=== PATIENT | female | born 1950 | race Caucasian/White ===

== ENCOUNTER 2017-08-20 16:51 | Emergency (ER) | payer MEDICARE, OTHER ==
[2017-08-20] MEDS ORDERED: LIDOCAINE HCL 1% MPF SOL ONE (16:59)
[2017-08-20 17:09] VITALS: RESP 20; TEMP 97.7
[2017-08-20] MEDS ORDERED: CEFTRIAXONE 1 GM PDS IM ONE (18:15)
[2017-08-20] MEDS ORDERED: LIDOCAINE HCL 1% MPF SOL INFIL ONE (18:15)
[2017-08-20] MEDS ORDERED: MORPHINE SULFATE 10 MG/ML SOL IV ONE (18:15)
[2017-08-20] MEDS ORDERED: MORPHINE SULFATE 10 MG/ML SOL IM PRN (18:19)
[2017-08-20] MEDS ORDERED: MORPHINE SULFATE 10 MG/ML SOL ONE (18:20)
[2017-08-20] MEDS ORDERED: CEFTRIAXONE 1 GM PDS ONE (18:22)
[2017-08-20 18:57] VITALS: BP 139/77; PULSE 110; O2SAT 93
== END 2017-08-20 18:45 | disposition short-term general hospital (02) | DRG 914 ==
LOC: ED 16:51
DX: S98.121A Partial traumatic amputation of right great toe, initial encounter (principal); V89.0XXA Person injured in unspecified motor-vehicle accident, nontraffic, initial encounter
CPT/HCPCS: 71100; 73630; 99285; J0696; J2270; J2001